=== PATIENT | male | born 1995 | race Two or more races ===

== ENCOUNTER 2022-09-28 01:56 | Emergency (ER) | payer SELFPAY ==
--- NOTE | 2022-09-28 | ECG_ITS ---
Test Reason : ANXIETY Blood Pressure : / mmHG Vent. Rate : 131 BPM Atrial Rate : 131 BPM P-R Int : 166 ms QRS Dur : 098 ms QT Int : 284 ms P-R-T Axes : 056 038 030 degrees QTc Int : 419 ms Sinus tachycardia Otherwise normal ECG No previous ECGs available Referred By: Generic ED Physician Electronically Signed By:GISELA VERA
[2022-09-28 02:22] VITALS: BP 149/71; BP 193/93; PULSE 129; PULSE 130; RESP 19; TEMP 36.6; O2SAT 97; O2SAT 99; BMI 25.2
--- NOTE | 2022-09-28 02:40 | ED_ITS ---
HPI - Anxiety General Chief Complaint: Anxiety Stated Complaint: anxiety Time Seen by Provider: 09/28/22 02:35 Source: patient and EMS Mode of arrival: ambulatory Limitations: no limitations History of Present Illness HPI narrative: Patient comes to the emergency room complaining of anxiety. Patient states that today he was reading in bed, stating feeling anxious, complaining of chest pressure, shortness of breath. Patient states that he has had the symptoms multiple times before. Patient has history of anxiety. Patient states that he does not have a primary care physician and or medical treatments. Patient takes [id number] Ashwagandha. Patient states that he red in [place] that this medication can help him with anxiety. Related Data Previous Rx's Medication Instructions Recorded hydroxyzine HCl 25 mg tablet 25 mg PO QID PRN nausea and 09/28/22 vomiting #14 tabs Allergies Allergy/AdvReac Type Severity Reaction Status Date / Time No Known Allergies Allergy Verified 09/28/22 02:39 Review of Systems Review of Systems: Constitutional : No Weight loss, No Fever, No Chills, No Night Sweats, No Fatigue, No Malaise ENT/Mouth : No Hearing loss, No Ear Pain, No Nasal Congestion, No Sinus Pain, No Hoarseness, No sore throat, No Rhinorrhea, No Swallowing Difficulty Eyes: No Eye Pain, No Swelling, No Redness, No Foreign Body, No Discharge, No Vision Changes Cardiovascular : No Chest Pain, No SOB, No Dyspnea on Exertion, No Orthopnea, No Edema, No Palpitations Respiratory : No Cough, No Sputum, No Wheezing, No Smoke Exposure, No Dyspnea Gastrointestinal : No Nausea, No Vomiting, No Diarrhea, No Constipation, No abdominal Pain, No Hematochezia, No Melena Genitourinary : no irregular bleeding, No Dysuria, No Urinary Frequency, No Hematuria, No Urinary Incontinence, No Urgency, No Flank Pain, No Urinary Flow Changes, No Hesitancy Musculoskeletal : No joint pain, No Myalgias, No Joint Swelling Skin : No Skin Lesions, No rash Neuro : No Weakness, No Numbness, No Paresthesias, No Loss of Consciousness, No Dizziness, No Headache Psych : Complaining of anxiety , no depression, no SI or HI Heme/Lymph: No Bruising, No Bleeding,No Lymphadenopathy Endocrine : No Polyuria, No Polydipsia, No Temperature Intolerance [facility] Social History Social History Advance Directives: No Advance Directives Information Provided: No Physical Exam Vital Signs: Vital Signs: Last Vital Signs Temp 98.9 F 09/28/22 05:38 Pulse 78 09/28/22 05:38 Resp 16 09/28/22 05:38 BP 103/59 L 09/28/22 05:38 Pulse Ox 97 09/28/22 05:38 O2 Del Method 09/28/22 05:38 BMI result Body Mass Index 25.2 Const: Other: Appearance: Alert. Oriented X3. No acute distress. Eyes: Pupils equal, round and reactive to light. ENT: Pharynx normal. Neck: Normal inspection. Neck supple. No lymph nodes noted. No crepitus CVS: Normal heart rate and rhythm. Pulses normal. Normal S1 and S2 Respiratory: No respiratory distress. Breath sounds normal. No Wheezing. No rales Abdomen: Soft and nontender. No rigidity. No distention. Skin: Skin warm and dry. Normal skin color. Normal skin turgor. Extremities: No lower extremity edema. No Lacerations. No Rash Neuro: Oriented X 3. No motor deficit. No sensory deficit. Moving all extremities. No slurred speech. CN 2 through 12 grossly intact Psych: calm, cooperative, since with anxious Course Course Course Narrative: -labs pending -patient given 1 mg of p.o. Ativan Medications Administered Discontinued Medications Generic Name Dose Route Start Last Admin Trade Name Freq PRN Reason Stop Dose Admin Lorazepam 1 mg 09/28/22 02:39 09/28/22 03:00 Lorazepam 1 Mg Tablet PO 09/28/22 02:40 1 mg ONCE ONE Administration Medical Decision Making Medical Decision Making [facility] Narrative: -EKG shows sinus tachycardia, heart rate 131, no ST segment depression or elevation, no T-wave inversion, QTC 419 -patient's white blood cell count is slightly bumped 16.5. However, patient has no signs or symptoms of infection including URI, UTI or abdominal symptoms -troponin negative -patient was given information for walk-in clinic and primary care physician per his request Lab Data 09/28/22 03:34 09/28/22 03:34 Labs: Lab Results 09/28/22 09/28/22 09/28/22 Range/Units 03:34 03:34 03:34 WBC 16.5 H (4.8-10.8) X10*3/uL RBC 4.92 (4.60-5.80) X10*6/uL Hgb 14.7 (14.0-18.0) g/dl Hct 41.2 L (42.0-52.0) % MCV 83.7 (80.0-98.0) fL MCH 29.9 (27.0-33.0) pg MCHC 35.7 (31.0-36.0) g/dl RDW 11.9 (11.0-16.0) % Plt Count 188 (160-400) X10*3/uL MPV 10.2 (9.4-12.4) fL Immature Gran % (Auto) 0.3 (0.0-0.4) % Neut % (Auto) 85.6 H (45-73) % Lymph % (Auto) 7.7 L (20-40) % [place] % (Auto) 5.9 (2-11) % Eos % (Auto) 0.2 (0-4) % Baso % (Auto) 0.3 (0-2) % Lymph # (Auto) 1.3 (1.2-4.9) X10*3/uL [place] # (Auto) 1.0 (0.1-1.2) X10*3/uL Eos # (Auto) 0.0 (0.0-0.4) X10*3/uL Baso # (Auto) 0.1 (0.0-0.2) X10*3/uL Abs Immat Gran (auto) 0.05 H (0.00-0.03) X10*3/uL Absolute Neuts (auto) 14.1 H (2.0-8.3) x10*3/uL Absolute Nucleated RBC 0.000 (0.0-0.012) X10*3/uL Nucleated RBC % (auto) 0.0 (0.0-0.2) /100WBC Sodium 142 (135-145) mmol/L Potassium 3.5 (3.3-5.1) mmol/L Chloride 107 (96-108) mmol/L Carbon Dioxide 25 (22-29) mmol/L Anion Gap 14 (12-20) BUN 16 (9-16) mg/dL Creatinine 0.82 (0.5-1.4) mg/dL Estim Creat Clear Calc 110.8 Estimated GFR > 60 Random Glucose 122 H (60-115) mg/dL Calcium 9.4 (8.4-10.2) mg/dL Troponin I High Sens < 3.5 (<3.5-35.0) ng/L Discharge Plan Discharge Clinical Impression: Acute anxiety Patient Disposition: Home, Self-Care Instructions: Anxiety (ED) Additional Instructions: Please follow-up with your primary care physician tomorrow. If you have any worsening or new symptoms, please return to the emergency room or call 911 Prescriptions: New hydroxyzine HCl 25 mg tablet 25 mg PO QID PRN (Reason: nausea and vomiting) Qty: 14 0RF Rx Instructions: [place] anxiety
[2022-09-28] MEDS: LORazepam 1 MG TABLET PO (03:00)
[2022-09-28 03:38] LABS: MANUAL DIFF FLAG NO
[2022-09-28 03:39] LABS: Basophils Absolute Auto 0.1 X10*3/uL (0.0-0.2); Basophils Percent Auto 0.3 % (0-2); Eosinophils Percent Auto 0.2 % (0-4); Hematocrit 41.2 % (42.0-52.0); Hemoglobin 14.7 g/dl (14.0-18.0); Imm Gran Abs Auto 0.05 X10*3/uL (0.00-0.03); Imm Gran Pct Auto 0.3 % (0.0-0.4); Lymphocytes Absolute Auto 1.3 X10*3/uL (1.2-4.9); Lymphocytes Percent Auto 7.7 % (20-40); Mean Corpuscular HGB Conc 35.7 g/dl (31.0-36.0); Mean Corpuscular Hemoglobin 29.9 pg (27.0-33.0); Mean Corpuscular Volume 83.7 fL (80.0-98.0); Mean Platelet Volume 10.2 fL (9.4-12.4); Monocytes Percent Auto 5.9 % (2-11); Neutrophils Absolute Auto 14.1 x10*3/uL (2.0-8.3); Neutrophils Percent Auto 85.6 % (45-73); Platelet Count 188 X10*3/uL (160-400); Red Blood Count 4.92 X10*6/uL (4.60-5.80); Red Cell Distribution Width 11.9 % (11.0-16.0); White Blood Count 16.5 X10*3/uL (4.8-10.8)
[2022-09-28 04:20] LABS: Anion Gap 14 (12-20); Blood Urea Nitrogen 16 mg/dL (9-16); Calcium 9.4 mg/dL (8.4-10.2); Carbon Dioxide 25 mmol/L (22-29); Chloride 107 mmol/L (96-108); Creatinine Clr Calc Pharmacy 110.8; Estimated Glomerular Filt Rate > 60; Glucose Random 122 mg/dL (60-115); Potassium 3.5 mmol/L (3.3-5.1); Sodium 142 mmol/L (135-145)
[2022-09-28 04:46] LABS: Troponin-I High Sensitivity < 3.5 ng/L (<3.5-35.0)
[2022-09-28 05:38] VITALS: BP 103/59; PULSE 78; RESP 16; TEMP 37.2; O2SAT 97
--- NOTE | 2022-09-28 05:39 | PC.NURSE ---
Patient reports anxiety improved. P 78, BP 103/59, RR16, O2 Sat 97% RA. Patient is afebrile. Patient denies any pain at present. Patient is calm, cooperative with care. Call holloway within patient's reach.
== END 2022-09-28 07:46 | disposition home or self-care (01) ==
PROVIDERS: Emergency Provider Emergency Medicine
DX: F41.9 Anxiety disorder, unspecified (principal); R00.0 Tachycardia, unspecified
CPT/HCPCS: 36415; 80048; 84484; 85025; 93005; 99283; 99284

== ENCOUNTER 2024-05-28 12:03 | Emergency (ER) | payer OTHER, SELFPAY ==
--- NOTE | 2024-05-28 12:21 | ED_ITS ---
HPI - General Adult General Chief complaint: Nausea/Vomiting/Diarrhea Stated complaint: [id number] Time Seen by Provider: 05/28/24 15:24 History of Present Illness HPI narrative: Patient complains of nausea vomiting and diarrhea x2 days, he associates it with changing his diet as he has been working a lot and he has been eating a lot of junk food He has no pain now but did have some crampy intermittent mild pain earlier He is hungry right now, he is not nauseous at this moment but is worried he may be later, he did have some watery diarrhea with no blood earlier today and he had several episodes yesterday today he has had 2 mild episodes He has no dysuria, he is not a heavy drinker he has no surgical or significant medical history Related Data Previous Rx's ?Medication ?Instructions ?Recorded hydroxyzine HCl 25 mg tablet 25 mg PO QID PRN nausea and 09/28/22 vomiting #14 tabs famotidine 20 mg tablet (Pepcid) 20 mg PO DAILY #7 tabs 05/28/24 loperamide 2 mg tablet (Imodium 2 mg PO Q4H PRN loose stool #10 05/28/24 A-D) tabs ondansetron 4 mg disintegrating 4 mg PO Q6H PRN nausea and 05/28/24 tablet vomiting #10 tabs Allergies Allergy/AdvReac Type Severity Reaction Status Date / Time No Known Allergies Allergy Verified 05/28/24 12:23 [facility] Social History Social History Advance Directives: No Advance Directives Information Provided: No Physical Exam ED Vital Signs: Vital Signs - 24 hr 05/28/24 12:22 05/28/24 15:38 Temperature 98.1 F 97.8 F Pulse Rate 90 93 Respiratory Rate 16 20 Blood Pressure 145/90 H 144/70 H Pulse Oximetry 100 98 Oxygen Delivery Method Room Air Room Air BMI result Body Mass Index 23.8 General appearance no distress anicteric no pallor comfortable, and cooperative Eyes anicteric no pallor Sinuses nontender The pharynx is clear without redness swelling or exudate, mucous membranes are moist and voice is normal Neck is supple Respiratory no distress Chest clear to auscultation bilateral Abdomen is soft and nontender with no rebound or guarding Extremities full range of motion x4 Skin no rash, turgor normal Neuro gait and balance are normal interaction comprehension and expression are normal Course Course Course Narrative: This is an RME performed by Abigail Sanchez CNP: Additional HPI, ROS, PE not included below will be deferred to primary provider. Patient is a 29-year-old male who presents emergency department for evaluation reporting that he has felt unwell for the past few days, feeling dehydrated and hungry. He reports that due to work he has not had time to cook, additionally he was attempting intermittent fasting, he did not expect to feel this way with doing so. By his account he stopped the intermittent fasting 2 days ago, and he has been consuming more fast foods and drinking vegetable juices, but now states that every time he eats he develops diarrhea. He also endorses having nausea and vomiting. Plan: Serum labs, urinalysis, Patient drank a full glass of water without any nausea or vomiting, diarrhea is abating he has only had 2 episodes today He has had no stomach pain here in the ER but is worried he might get pain when he eats He is given prescriptions for if needed Imodium, Zofran and Pepcid and well- appearing patient tolerating p.o. is discharged Medical Decision Making Lab Data 05/28/24 13:44 05/28/24 13:44 Labs: Lab Results 05/28/24 05/28/24 Range/Units 13:44 15:24 WBC 8.3 (4.8-10.8) X10*3/uL RBC 5.55 (4.60-5.80) X10*6/uL Hgb 16.7 (14.0-18.0) g/dl Hct 46.4 (42.0-52.0) % MCV 83.6 (80.0-98.0) fL MCH 30.1 (27.0-33.0) pg MCHC 36.0 (31.0-36.0) g/dl RDW 11.9 (11.0-16.0) % Plt Count 199 (160-400) X10*3/uL MPV 10.0 (9.4-12.4) fL Immature Gran % (Auto) 0.2 (0.0-0.4) % Neut % (Auto) 71.4 (45-73) % Lymph % (Auto) 19.5 L (20-40) % [place] % (Auto) 8.6 (2-11) % Eos % (Auto) 0.1 (0-4) % Baso % (Auto) 0.2 (0-2) % Lymph # (Auto) 1.6 (1.2-4.9) X10*3/uL [place] # (Auto) 0.7 (0.1-1.2) X10*3/uL Eos # (Auto) 0.0 (0.0-0.4) X10*3/uL Baso # (Auto) 0.0 (0.0-0.2) X10*3/uL Abs Immat Gran (auto) 0.02 (0.00-0.03) X10*3/uL Absolute Neuts (auto) 5.9 (2.0-8.3) x10*3/uL Absolute Nucleated RBC 0.000 (0.0-0.012) X10*3/uL Nucleated RBC % (auto) 0.0 (0.0-0.2) /100WBC Sodium 140 (135-145) mmol/L Potassium 4.5 (3.3-5.1) mmol/L Chloride 106 (96-108) mmol/L Carbon Dioxide 27 (22-29) mmol/L Anion Gap 12 (12-20) BUN 8 L (9-16) mg/dL Creatinine 0.82 (0.5-1.4) mg/dL Estim Creat Clear Calc 122.1 Estimated GFR > 60 Random Glucose 112 (60-115) mg/dL Calcium 10.6 H D (8.4-10.2) mg/dL Total Bilirubin 0.6 (0.0-1.0) mg/dL AST 16 (5-37) U/L ALT 19 (0-40) U/L Alkaline Phosphatase 78 (39-117) U/L Total Protein 8.1 H (6.5-8.0) g/dL Albumin 5.2 H (3.5-5.0) g/dL Lipase 18 (8-78) U/L Urine Color Yellow Urine Appearance Turbid Urine pH 8.0 (5.0-9.0) Ur Specific [place] 1.020 (1.005-1.025) Urine Protein Negative (Neg-Trace) mg/dL Urine Glucose (UA) Negative (Negative) mg/dL Urine Ketones Negative (Negative) mg/dL Urine Blood Negative (Negative) Urine Nitrite Negative (Negative) Ur Leukocyte Esterase Negative (Negative) Influenza Type A (PCR) NEGATIVE (Negative) Influenza Type B (PCR) NEGATIVE (Negative) RSV RNA Qual (PCR) NEGATIVE (Negative) SARS-CoV-2 RNA (RT-PCR) NEGATIVE (Negative) Discharge Plan Discharge Clinical Impression: Gastroenteritis Patient Disposition: Home, Self-Care Additional Instructions: It looks like things are getting better so you may not need any of these medicines I wrote Zofran if needed if nausea returns Imodium is for diarrhea only if diarrhea returns Pepcid is an antacid if you get burning pain in her stomach Most of this resolves in 2-3 days so you may not need any of these medications, main thing is to drink plenty of fluids Return any time any worse condition or concerns There was no worrisome abnormality on your lab work COVID and flu tests were negative Prescriptions: New ondansetron 4 mg tablet,disintegrating 4 mg PO Q6H PRN (Reason: nausea and vomiting) Qty: 10 0RF loperamide [Imodium A-D] 2 mg tablet 2 mg PO Q4H PRN (Reason: loose stool) Qty: 10 0RF Rx Instructions: administer after each loose stool until symptoms controlled; do not exceed 8 mg per 24 hrs famotidine [Pepcid] 20 mg tablet 20 mg PO DAILY Qty: 7 0RF No Action hydroxyzine HCl 25 mg tablet 25 mg PO QID PRN (Reason: nausea and vomiting) Qty: 14 0RF Rx Instructions: P.r.n. anxiety Stand Alone Forms: Work/School Release Print Language: [place]
[2024-05-28 12:22] VITALS: BP 145/90; PULSE 90; RESP 16; TEMP 36.7; O2SAT 100; BMI 23.8
[2024-05-28 13:51] LABS: MANUAL DIFF FLAG NO
[2024-05-28 13:55] LABS: Basophils Percent Auto 0.2 % (0-2); Eosinophils Percent Auto 0.1 % (0-4); Hematocrit 46.4 % (42.0-52.0); Hemoglobin 16.7 g/dl (14.0-18.0); Imm Gran Abs Auto 0.02 X10*3/uL (0.00-0.03); Imm Gran Pct Auto 0.2 % (0.0-0.4); Lymphocytes Absolute Auto 1.6 X10*3/uL (1.2-4.9); Lymphocytes Percent Auto 19.5 % (20-40); Mean Corpuscular Hemoglobin 30.1 pg (27.0-33.0); Mean Corpuscular Volume 83.6 fL (80.0-98.0); Monocytes Absolute Auto 0.7 X10*3/uL (0.1-1.2); Monocytes Percent Auto 8.6 % (2-11); Neutrophils Absolute Auto 5.9 x10*3/uL (2.0-8.3); Neutrophils Percent Auto 71.4 % (45-73); Platelet Count 199 X10*3/uL (160-400); Red Blood Count 5.55 X10*6/uL (4.60-5.80); Red Cell Distribution Width 11.9 % (11.0-16.0); White Blood Count 8.3 X10*3/uL (4.8-10.8)
[2024-05-28 14:08] LABS: Alanine Aminotransferase 19 U/L (0-40); Albumin Level 5.2 g/dL (3.5-5.0); Alkaline Phosphatase 78 U/L (39-117); Anion Gap 12 (12-20); Aspartate Amino Transferase 16 U/L (5-37); Bilirubin Total 0.6 mg/dL (0.0-1.0); Blood Urea Nitrogen 8 mg/dL (9-16); Calcium 10.6 mg/dL (8.4-10.2); Carbon Dioxide 27 mmol/L (22-29); Chloride 106 mmol/L (96-108); Creatinine Clr Calc Pharmacy 122.1; Estimated Glomerular Filt Rate > 60; Glucose Random 112 mg/dL (60-115); Lipase 18 U/L (8-78); Potassium 4.5 mmol/L (3.3-5.1); Sodium 140 mmol/L (135-145); Total Protein 8.1 g/dL (6.5-8.0)
[2024-05-28 14:29] LABS: Influenza A PCR NEGATIVE (Negative); Influenza B PCR NEGATIVE (Negative); Resp Syncy Virus RNA Qual PCR NEGATIVE (Negative); SARS COV2 PCR INHOUSE NEGATIVE (Negative)
[2024-05-28 15:32] LABS: Appearance Urine Turbid; Color Urine Yellow; Glucose Urine UA Negative (Negative); Leukocyte Esterase Urine Negative (Negative); Nitrite Urine Negative (Negative); Urine Blood Negative (Negative); Urine Ketones Negative (Negative); Urine Protein Negative (Neg-Trace)
[2024-05-28 15:38] VITALS: BP 144/70; PULSE 93; RESP 20; TEMP 36.6; O2SAT 98
[2024-05-28 16:35] VITALS: BP 144/70; PULSE 93; RESP 20; TEMP 36.6; O2SAT 98
== END 2024-05-28 16:38 | disposition home or self-care (01) ==
PROVIDERS: Nurse Practitioner Family; Emergency Provider Emergency Medicine Emergency Medical Services
DX: K52.9 Noninfective gastroenteritis and colitis, unspecified (principal); R11.2 Nausea with vomiting, unspecified; E86.0 Dehydration; R25.2 Cramp and spasm; Z03.818 Encounter for observation for suspected exposure to other biological agents ruled out; Z79.899 Other long term (current) drug therapy
CPT/HCPCS: 0241U; 36415; 80053; 81003; 83690; 85025; 99283

== ENCOUNTER 2024-06-10 19:19 | Emergency (ER) | payer OTHER, SELFPAY ==
--- NOTE | 2024-06-10 19:22 | ECG_ITS ---
Test Reason : cp Blood Pressure : / mmHG Vent. Rate : 142 BPM Atrial Rate : 142 BPM P-R Int : 150 ms QRS Dur : 092 ms QT Int : 266 ms P-R-T Axes : 073 013 042 degrees QTc Int : 409 ms Sinus tachycardia Otherwise normal ECG When compared to the previous EKG of No significant changes when compared with the previous EKG of Referred By: Lesly Stallworth Electronically Signed By:LETHA PHELAN MD
[2024-06-10 19:32] VITALS: BP 132/72; PULSE 131; RESP 22; TEMP 37; O2SAT 100; BMI 23.3
[2024-06-10] MEDS: LORazepam 1 MG TABLET PO (19:39)
[2024-06-10 19:54] LABS: MANUAL DIFF FLAG NO
--- NOTE | 2024-06-10 19:57 | ED_ITS ---
HPI - Chest Pain General Chief Complaint: Chest Pain Stated Complaint: Chest Pains Time Seen by Provider: 06/10/24 19:32 Source: patient Mode of arrival: ambulatory Limitations: no limitations History of Present Illness ED Provider: Dr. Geovanna Best HPI narrative: Patient comes to the emergency room complaining of having a panic attack. Patient states that earlier today he was eating lunch, then started having GERD like symptoms, patient started becoming very anxious, state that his pleural pressure was high even though he did not check it and came to the emergency room. When patient arrived, patient was having a full-blown panic attack. In triage patient had to be given p.o. Ativan Related Data Previous Rx's ?Medication ?Instructions ?Recorded hydroxyzine HCl 25 mg tablet 25 mg PO QID PRN nausea and 09/28/22 vomiting #14 tabs famotidine 20 mg tablet (Pepcid) 20 mg PO DAILY #7 tabs 05/28/24 loperamide 2 mg tablet (Imodium 2 mg PO Q4H PRN loose stool #10 05/28/24 A-D) tabs ondansetron 4 mg disintegrating 4 mg PO Q6H PRN nausea and 05/28/24 tablet vomiting #10 tabs hydroxyzine HCl 50 mg tablet 50 mg PO TID PRN nausea and 06/10/24 vomiting #14 tabs omeprazole 20 mg capsule,delayed 20 mg PO DAILY #30 caps 06/10/24 release Allergies Allergy/AdvReac Type Severity Reaction Status Date / Time No Known Allergies Allergy Verified 06/10/24 19:34 Review of Systems 2 Review of Systems: Constitutional : No Weight loss, No Fever, No Chills, No Night Sweats, No Fatigue, No Malaise ENT/Mouth : No Hearing loss, No Ear Pain, No Nasal Congestion, No Sinus Pain, No Hoarseness, No sore throat, No Rhinorrhea, No Swallowing Difficulty Eyes: No Eye Pain, No Swelling, No Redness, No Foreign Body, No Discharge, No Vision Changes Cardiovascular : No Chest Pain, No SOB, No Dyspnea on Exertion, No Orthopnea, No Edema, No Palpitations Respiratory : No Cough, No Sputum, No Wheezing, No Smoke Exposure, No Dyspnea Gastrointestinal : 1 episode of vomiting, GERD like sensation, No Diarrhea, No Constipation, No abdominal Pain, No Hematochezia, No Melena Genitourinary : no irregular bleeding, No Dysuria, No Urinary Frequency, No Hematuria, No Urinary Incontinence, No Urgency, No Flank Pain, No Urinary Flow Changes, No Hesitancy Musculoskeletal : No joint pain, No Myalgias, No Joint Swelling Skin : No Skin Lesions, No rash Neuro : No Weakness, No Numbness, No Paresthesias, No Loss of Consciousness, No Dizziness, No Headache Psych : Panic attack, No Depression, No SI/HI/AH/VH, No Social Issues, Heme/Lymph: No Bruising, No Bleeding,No Lymphadenopathy Endocrine : No Polyuria, No Polydipsia, No Temperature Intolerance [facility] Social History Social History Advance Directives: No Advance Directives Information Provided: No Physical Exam 2 Vital Signs: Vital Signs: Last Vital Signs Temp 98.5 F 06/10/24 20:20 Pulse 102 H 06/10/24 20:20 Resp 14 06/10/24 20:20 BP 125/78 06/10/24 20:20 Pulse Ox 99 06/10/24 20:20 O2 Del Method Room Air 06/10/24 20:20 BMI result Body Mass Index 23.3 Const: Other: Appearance: Alert. Oriented X3. No acute distress. Eyes: Pupils equal, round and reactive to light. ENT: Pharynx normal. Neck: Normal inspection. Neck supple. No lymph nodes noted. No crepitus CVS: Normal heart rate and rhythm. Pulses normal. Normal S1 and S2 Respiratory: No respiratory distress. Breath sounds normal. No Wheezing. No rales Abdomen: Soft and nontender. No rigidity. No distention. Skin: Skin warm and dry. Normal skin color. Normal skin turgor. Extremities: No lower extremity edema. No Lacerations. No Rash Neuro: Oriented X 3. No motor deficit. No sensory deficit. Moving all extremities. No slurred speech. CN 2 through 12 grossly intact Psych: calm, cooperative, normal affect Course Course Course Narrative: Patient was given 1 mg p.o. Ativan, patient more calm. Patient still remains anxious about his health, especially about having gastritis. -all of patient's labs pending Medications Administered Discontinued Medications Generic Name Dose Route Start Last Admin Trade Name Freq PRN Reason Stop Dose Admin Lorazepam 1 mg 06/10/24 19:30 06/10/24 19:39 Lorazepam 1 Mg Tablet PO 06/10/24 19:31 1 mg ONCE ONE Administration Medical Decision Making Medical Decision Making [facility] Narrative: My interpretation of EKG: Sinus tachycardia, heart rate 142, no ST segment depression or elevation, no T-wave inversion, QTC 409 EKG was taken very patient's triage, patient was having a panic attack. -once patient calm time, heart rate between 80-100 -my interpretation of labs: Normal hematology and chemistry, normal LFTs and lipase. -I discussed with the patient that likely he experienced GERD versus peptic ulcer disease versus gastritis. The sensation of GERD trigger patient's panic attack. -patient instructed to follow-up with his primary care physician Differential Diagnosis Differential Diagnoses: The differential diagnosis associated with the presentation includes (As above) Lab Data [facility] Lab Attestation statement: I reviewed the patient's lab results. 06/10/24 19:48 06/10/24 19:48 Labs: Lab Results 06/10/24 Range/Units 19:48 WBC 8.2 (4.8-10.8) X10*3/uL RBC 5.11 (4.60-5.80) X10*6/uL Hgb 15.5 (14.0-18.0) g/dl Hct 42.4 (42.0-52.0) % MCV 83.0 (80.0-98.0) fL MCH 30.3 (27.0-33.0) pg MCHC 36.6 H (31.0-36.0) g/dl RDW 11.9 (11.0-16.0) % Plt Count 183 (160-400) X10*3/uL MPV 10.3 (9.4-12.4) fL Immature Gran % (Auto) 0.4 (0.0-0.4) % Neut % (Auto) 69.3 (45-73) % Lymph % (Auto) 23.7 (20-40) % [place] % (Auto) 5.6 (2-11) % Eos % (Auto) 0.5 (0-4) % Baso % (Auto) 0.5 (0-2) % Lymph # (Auto) 2.0 (1.2-4.9) X10*3/uL [place] # (Auto) 0.5 (0.1-1.2) X10*3/uL Eos # (Auto) 0.0 (0.0-0.4) X10*3/uL Baso # (Auto) 0.0 (0.0-0.2) X10*3/uL Abs Immat Gran (auto) 0.03 (0.00-0.03) X10*3/uL Absolute Neuts (auto) 5.7 (2.0-8.3) x10*3/uL Absolute Nucleated RBC 0.000 (0.0-0.012) X10*3/uL Nucleated RBC % (auto) 0.0 (0.0-0.2) /100WBC Sodium 135 (135-145) mmol/L Potassium 3.4 D (3.3-5.1) mmol/L Chloride 103 (96-108) mmol/L Carbon Dioxide 19 L (22-29) mmol/L Anion Gap 16 (12-20) BUN 22 H (9-16) mg/dL Creatinine 0.80 (0.5-1.4) mg/dL Estim Creat Clear Calc 120.6 Estimated GFR > 60 Random Glucose 223 H (60-115) mg/dL Calcium 9.6 D (8.4-10.2) mg/dL Magnesium 1.7 (1.6-2.6) mg/dL Total Bilirubin 0.4 (0.0-1.0) mg/dL Direct Bilirubin 0.2 (0.0-0.5) mg/dL AST 16 (5-37) U/L ALT 14 (0-40) U/L Alkaline Phosphatase 77 (39-117) U/L Troponin I High Sens < 2.7 (<3.5-35.0) ng/L Total Protein 7.5 (6.5-8.0) g/dL Albumin 4.6 (3.5-5.0) g/dL Lipase 19 (8-78) U/L Independent Interpretation I performed an independent interpretation of an: EKG Tests considered The following testing was considered but not selected: I considered doing a KUB to rule out any free air under the diaphragm. However, patient's physical exam was unremarkable, no abdominal pain on palpation. Patient well-appearing. Patient likely has gastritis versus GERD Discharge Plan Discharge Clinical Impression: Gastritis, Panic attack Patient Disposition: Home, Self-Care Instructions: Gastritis (ED), Panic Attack (ED) Additional Instructions: Please follow-up with your primary care physician tomorrow. If you have any worsening or new symptoms, please return to the emergency room or call 911 Prescriptions: New hydroxyzine HCl 50 mg tablet 50 mg PO TID PRN (Reason: nausea and vomiting) Qty: 14 0RF Rx Instructions: P.r.n. anxiety omeprazole 20 mg capsule,delayed release(DR/EC) 20 mg PO DAILY Qty: 30 0RF No Action hydroxyzine HCl 25 mg tablet 25 mg PO QID PRN (Reason: nausea and vomiting) Qty: 14 0RF Rx Instructions: P.r.n. anxiety ondansetron 4 mg tablet,disintegrating 4 mg PO Q6H PRN (Reason: nausea and vomiting) Qty: 10 0RF loperamide [Imodium A-D] 2 mg tablet 2 mg PO Q4H PRN (Reason: loose stool) Qty: 10 0RF Rx Instructions: administer after each loose stool until symptoms controlled; do not exceed 8 mg per 24 hrs famotidine [Pepcid] 20 mg tablet 20 mg PO DAILY Qty: 7 0RF Print Language: [place]ian
[2024-06-10 20:00] LABS: Basophils Percent Auto 0.5 % (0-2); Eosinophils Percent Auto 0.5 % (0-4); Hematocrit 42.4 % (42.0-52.0); Hemoglobin 15.5 g/dl (14.0-18.0); Imm Gran Abs Auto 0.03 X10*3/uL (0.00-0.03); Imm Gran Pct Auto 0.4 % (0.0-0.4); Lymphocytes Percent Auto 23.7 % (20-40); Mean Corpuscular HGB Conc 36.6 g/dl (31.0-36.0); Mean Corpuscular Hemoglobin 30.3 pg (27.0-33.0); Mean Platelet Volume 10.3 fL (9.4-12.4); Monocytes Absolute Auto 0.5 X10*3/uL (0.1-1.2); Monocytes Percent Auto 5.6 % (2-11); Neutrophils Absolute Auto 5.7 x10*3/uL (2.0-8.3); Neutrophils Percent Auto 69.3 % (45-73); Platelet Count 183 X10*3/uL (160-400); Red Blood Count 5.11 X10*6/uL (4.60-5.80); Red Cell Distribution Width 11.9 % (11.0-16.0); White Blood Count 8.2 X10*3/uL (4.8-10.8)
[2024-06-10 20:10] VITALS: BP 131/78; PULSE 105; RESP 16; O2SAT 99
[2024-06-10 20:11] VITALS: PULSE 105
[2024-06-10 20:12] LABS: Alanine Aminotransferase 14 U/L (0-40); Albumin Level 4.6 g/dL (3.5-5.0); Alkaline Phosphatase 77 U/L (39-117); Anion Gap 16 (12-20); Aspartate Amino Transferase 16 U/L (5-37); Bilirubin Direct 0.2 mg/dL (0.0-0.5); Bilirubin Total 0.4 mg/dL (0.0-1.0); Blood Urea Nitrogen 22 mg/dL (9-16); Calcium 9.6 mg/dL (8.4-10.2); Carbon Dioxide 19 mmol/L (22-29); Chloride 103 mmol/L (96-108); Creatinine Clr Calc Pharmacy 120.6; Estimated Glomerular Filt Rate > 60; Glucose Random 223 mg/dL (60-115); Lipase 19 U/L (8-78); Magnesium 1.7 mg/dL (1.6-2.6); Potassium 3.4 mmol/L (3.3-5.1); Sodium 135 mmol/L (135-145); Total Protein 7.5 g/dL (6.5-8.0)
[2024-06-10 20:20] VITALS: BP 125/78; PULSE 102; RESP 14; TEMP 36.9; O2SAT 99
[2024-06-10 20:21] LABS: Troponin-I High Sensitivity < 2.7 ng/L (<3.5-35.0)
[2024-06-10 20:33] LABS: TSH reflex Free T4 1.71 uIU/mL (0.32-4.0)
[2024-06-10] MEDS: Lidocaine HCl Viscous 2 % 15 ML SOLUTION MUCOUS MEM (21:16)
[2024-06-10] MEDS: Magnesium Hydrox/Alum Hydrox 30 ML ORAL.SUSP PO (21:16)
[2024-06-10] MEDS: Famotidine 20 MG TABLET PO (21:17)
[2024-06-10 21:30] VITALS: BP 125/78; PULSE 102; RESP 14; TEMP 36.9; O2SAT 99
== END 2024-06-10 21:32 | disposition home or self-care (01) ==
PROVIDERS: Physician Assistant Medical; Emergency Provider Emergency Medicine
DX: K29.70 Gastritis, unspecified, without bleeding (principal); R07.89 Other chest pain; F41.0 Panic disorder [episodic paroxysmal anxiety]; Z79.899 Other long term (current) drug therapy
CPT/HCPCS: 36415; 80048; 80076; 83690; 83735; 84443; 84484; 85025; 93005; 99283; 99284

== ENCOUNTER → 2024-06-10 19:22 | Outpatient (BNV) | payer OTHER, SELFPAY | PROVIDERS: Emergency Provider Emergency Medicine; Visit Provider Internal Medicine Cardiovascular Disease | DX: R00.0 Tachycardia, unspecified (principal) | CPT/HCPCS: 93010 ==